=== PATIENT | male | born 1970 | race Caucasian/White ===

== ENCOUNTER 2022-10-29 20:34 | Emergency (ER) | payer OTHER, SELFPAY ==
[2022-10-29 20:36] VITALS: BP 156/98; RESP 26; TEMP 36.3; O2SAT 98; BMI 27.0
[2022-10-29 20:39] VITALS: BP 155/101; PULSE 98; RESP 24; O2SAT 99
--- NOTE | 2022-10-29 20:41 | ED.GENADULT ---
HPI - General Adult General Chief complaint: Chest Pain Stated complaint: heartburn Time Seen by Provider: 10/29/22 20:35 History of Present Illness HPI narrative: Pt states his abdomen is burning it was right after 6pm after his dinner, that his stomach started to burn , he states his jaw and triceps hurt as well. He is having back pain. 51-year-old man presenting to the emergency department with complaint of burning epigastric pain about 2-1/2 hours prior to arrival here. This was shortly after supper. Does not really struggle with heartburn apparently. Subsequently then his jaw started to hurt then triceps and now his elbows. Arrives a little tachypneic but does not describes of shortness of breath. Does have some anxiety and pain is causing him to feel some stress. Starting a new job shortly. Does have hypertension and dyslipidemia but not taking his Lipitor regularly. Spouse is a consultant intern. She notes his propensity toward carnivorous lifestyle. Related Data Allergies Allergy/AdvReac Type Severity Reaction Status Date / Time No Known Drug Allergies Allergy Verified 10/29/22 20:39 Review of Systems Status of ROS: Reports: 6 or more systems reviewed and unremarkable except as noted in History and below Exam Narrative: Exam Narrative: Ambulatory to the ER. Clearly uncomfortable. Wincing. Conversing without difficulty. Cranial nerves grossly intact. Slightly labored in his breathing consistent with apparent pain, oxygenating well. Skin is actually warm and dry. Well-perfused peripherally. Heart is in a mildly elevated rate. Regular rhythm. Lungs appear to be clear. Const: Vital Signs, click to edit/add: Vital Signs - 24 hr 10/29/22 20:36 Temperature 97.3 F L Respiratory Rate 26 H Blood Pressure [Ri ght Upper Arm] 156/98 H Pulse Oximetry 98 Oxygen Delivery Me thod Room Air Documenting provider has reviewed patient's vital signs: yes Course Vital Signs Vital signs: Initial Vital Signs Temperature 97.3 F L 10/29/22 20:36 Temperature Source Temporal Artery Scan 10/29/22 20:36 Pulse Rhythm Regular 10/29/22 20:36 Pulse Strength 3+ Normal 10/29/22 20:36 Respiratory Rate 26 H 10/29/22 20:36 Blood Pressure 156/98 H 10/29/22 20:36 Blood Pressure Mean 117 H 10/29/22 20:36 Blood Pressure Position Sitting 10/29/22 20:36 Pulse Oximetry 98 10/29/22 20:36 Oxygen Delivery Method Room Air 10/29/22 20:36 Vital Signs Temperature 97.3 F L 10/29/22 20:36 Respiratory Rate 26 H 10/29/22 20:36 Blood Pressure 156/98 H 10/29/22 20:36 Pulse Oximetry 98 10/29/22 20:36 Oxygen Delivery Method Room Air 10/29/22 20:36 Temperature 97.3 F L 10/29/22 20:47 Pulse Rate 80 10/29/22 21:30 Respiratory Rate 20 10/29/22 21:30 Blood Pressure 140/88 H 10/29/22 21:30 Pulse Oximetry 99 10/29/22 21:30 Oxygen Delivery Method Room Air 10/29/22 21:30 Medical Decision Making MDM Narrative Medical decision making narrative: I am handed EKG as I walk into the exam room. This shows diffuse areas of marked ST elevation. Rate of 70. Presumed extensive WA. will be treating as STEMI. Quickly examined and exit to initiate level 1 protocol calling to [facility]. Spoke with Dr. Bahena. Helicopter unfortunately is a ways out; farther than usual. I think it will at least be equivalent via ground. I do know how long it will take our ambulance and we have activated them code 3 for transport. Ordered for morphine and Q 5 nitro. However after 2 nitro pain went from his 9 or so rating to 1 and as I am talking with him again is essentially non-existent. Clearly less anxious. color television console monitor still showing marked elevation. Have not initiated nitro drip at this time. Receiving normal saline bolus as well. Labs are pending. By my read chest x-ray with normal airspace. Normal mediastinum. Pending transport. Initial point of care troponin is 0.27. White count a little elevated might be margination/stress response. Creatinine of 1.4 Vitals stable. Lab Data Lab results reviewed: Yes I reviewed the patient's lab results Labs: Lab Results 10/29/22 10/29/22 Range/Units 20:48 20:50 WBC 13.88 H (4.50-11.00) K/uL RBC 5.37 (4.30-5.90) m/uL Hgb 16.0 (13.5-17.5) gm/dL Hct 44.7 (37.0-53.0) % MCV 83 (80-100) fL MCH 30 (26-34) pg MCHC 36 (32-36) gm/dL RDW Coeff of Edis 12.2 (11.5-15.5) % Plt Count 246 (140-440) K/uL Neut % (Auto) 78.1 H (42.0-72.0) % Lymph % (Auto) 14.1 L (20-44) % [place] % (Auto) 6.9 (0.0-11.0) % Eos % (Auto) 0.6 (0.0-7.0) % Baso % (Auto) 0.2 (0.0-3.0) % Neut # (Auto) 10.80 H (1.7-7.0) K/uL Lymph # (Auto) 2.00 (0.90-2.90) K/uL [place] # (Auto) 1.00 H (0.00-0.90) K/UL Eos # (Auto) 0.10 (0.00-0.50) K/uL Baso # (Auto) 0.00 (0.00-0.30) K/uL Abs Immat Gran (auto) 0.00 (0.00-0.30) K/uL Imm/Tot Granulo (auto) 0.1 % D-Dimer Quant (PE/DVT) 0.31 (0.00-0.50) ug/ml Sodium 137 (135-149) mmol/L Potassium 3.4 L (3.6-5.1) mmol/L Chloride 101 (96-114) mmol/L Carbon Dioxide 21 (20-32) mmol/L BUN 30 (7-30) mg/dL Creatinine 1.4 (0.5-1.5) mg/dL Estimated Creat Clear 70.55 Estimated GFR 61 ml/min Glucose 225 H (60-115) mg/dL Calcium 10.0 (8.4-10.6) mg/dL Total Bilirubin 0.5 (0.1-1.5) mg/dL Direct Bilirubin 0.1 (0.0-0.5) mg/dL AST 41 H (12-35) U/L ALT 47 (4-50) U/L Alkaline Phosphatase 76 (40-150) U/L Troponin I 0.24 H* (0.01-0.04) ng/mL NT-Pro-B Natriuret Pep < 20 pg/mL Total Protein 8.0 (6.0-8.3) g/dL Albumin 4.8 (3.3-5.0) g/dL POC Troponin I 0.27 H (0.01-0.04) ng/ml ECG Data Attestation: I personally reviewed and interpreted this ECG as follows: (Diffuse ST elevation [place]. rate of 70) Critical Care Time Critical Care Time Total Critical Care Time in Minutes: 40 Discharge Plan Discharge Clinical Impression: ST elevation (STEMI) myocardial infarction Patient Disposition: Xfer [facility] Discharge Location: [facility] Condition: Critical Stand Alone Forms: MyHealth Info Instructions
[2022-10-29 20:47] VITALS: BP 117/82; BP 153/85; PULSE 84; PULSE 98; RESP 20; TEMP 36.3; O2SAT 99
--- NOTE | 2022-10-29 20:47 | CRLHL7_ITS ---
For Patients: As a result of the Century Cures Act, medical imaging exams and procedure reports are released immediately into your electronic medical record. You may view this report before your referring provider. If you have questions, please contact your health care provider. INDICATION: Chest pain, epigastric pain TECHNIQUE: Chest 1 view. Permanently recorded images are archived. COMPARISON: None. FINDINGS: Cardiovascular and mediastinum: Heart size and vasculature are normal in caliber and appearance. Lungs and pleural spaces: The lungs are clear. No pleural effusion or pneumothorax. Bones and soft tissues: Unremarkable for age. IMPRESSION: No evidence of an acute pulmonary process. Dictated by Sidney Cavazos MD @ 10/29/2022 9:23:26 PM (Electronically Signed)
[2022-10-29] MEDS: NITROGLYCERIN 0.4 MG TAB.SUBL SUBLINGUAL ×2 (20:54→21:00)
[2022-10-29 20:55] VITALS: BP 144/92; PULSE 84; RESP 20; O2SAT 99
[2022-10-29] MEDS: ASPIRIN 81 MG TAB.CHEW 324 MG PO (20:55)
[2022-10-29] MEDS: HEPARIN 5,000 UNIT/0.5 ML INJ 4000 UNIT IVP (20:58)
[2022-10-29] MEDS: TICAGRELOR 90 MG TABLET 180 MG PO ×2 (21:00→21:07)
[2022-10-29 21:02] LABS: Basophils Percent Auto 0.2 % (0.0-3.0); Eosinophils Percent Auto 0.6 % (0.0-7.0); Hematocrit 44.7 % (37.0-53.0); Immature Granulocytes Pct Auto 0.1 %; Lymphocytes Percent Auto 14.1 % (20-44); Mean Corpuscular HGB Conc 36 gm/dL (32-36); Mean Corpuscular Hemoglobin 30 pg (26-34); Mean Corpuscular Volume 83 fL (80-100); Monocytes Percent Auto 6.9 % (0.0-11.0); Neutrophils Percent Auto 78.1 % (42.0-72.0); Platelet Count* 246 K/uL (140-440); RDW Coefficient of Variation % 12.2 % (11.5-15.5); Red Blood Count 5.37 m/uL (4.30-5.90); White Blood Count* 13.88 K/uL (4.50-11.00)
[2022-10-29 21:09] LABS: Slide Review Reflex No
[2022-10-29 21:12] LABS: Troponin, Point-of-Care* 0.27 ng/ml (0.01-0.04)
[2022-10-29] MEDS: HEPARIN 25,000 UNIT/500 ML BAG 20 UNIT IV (21:14)
[2022-10-29 21:15] LABS: Chloride* 101 mmol/L (96-114)
[2022-10-29 21:16] LABS: Albumin* 4.8 g/dL (3.3-5.0); Potassium* 3.4 mmol/L (3.6-5.1); Sodium* 137 mmol/L (135-149)
[2022-10-29] MEDS: 0.9 % SODIUM CHLORIDE 1000 ml 1,000 ML IV (21:16)
[2022-10-29 21:18] LABS: Carbon Dioxide* 21 mmol/L (20-32); Creatinine* 1.4 mg/dL (0.5-1.5); Est. Creatinine Clearance* 70.55; Estimated Glomerular Filt Rate 61 ml/min
[2022-10-29 21:19] LABS: Alanine Aminotransferase* 47 U/L (4-50); Alkaline Phosphatase* 76 U/L (40-150); Aspartate Amino Transferase* 41 U/L (12-35); Bilirubin Direct* 0.1 mg/dL (0.0-0.5); Bilirubin Total* 0.5 mg/dL (0.1-1.5); Blood Urea Nitrogen* 30 mg/dL (7-30); Glucose* 225 mg/dL (60-115)
[2022-10-29 21:21] LABS: D Dimer Quantitative* 0.31 ug/ml (0.00-0.50)
[2022-10-29 21:29] VITALS: BP 147/93; PULSE 81; RESP 20; O2SAT 99
[2022-10-29 21:30] VITALS: BP 140/88; PULSE 80; RESP 20; O2SAT 99
[2022-10-29 21:32] LABS: NT Pro B Type NatriureticPept* < 20 pg/mL; Troponin I* 0.24 ng/mL (0.01-0.04)
--- NOTE | 2022-10-29 21:32 | ED.NURSE ---
Pt was transferred by [facility] transport to [place] for dx: STEMI. 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
== END 2022-10-29 21:25 | disposition short-term general hospital (02) ==
PROVIDERS: Emergency Provider Family Medicine; PCP Family Medicine
DX: I21.3 ST elevation (STEMI) myocardial infarction of unspecified site (principal)
CPT/HCPCS: 36415; 71045; 80048; 80076; 83880; 84484; 85025; 85379; 93005; 94761; 99284; 99291; A9270; J1644; J7030

== ENCOUNTER 2022-10-29 21:16 | Outpatient (CLI) | payer OTHER, SELFPAY | END 2022-10-29 21:17 | disposition home or self-care (01) | LOC: AMB 11-02 11:38 | PROVIDERS: PCP Family Medicine; Visit Provider Family Medicine | DX: I21.3 ST elevation (STEMI) myocardial infarction of unspecified site (principal) | CPT/HCPCS: A0425; A0434 ==

== ENCOUNTER 2022-11-16 14:50 | Outpatient (CLI) | payer OTHER, SELFPAY | END 2022-11-16 14:51 | disposition home or self-care (01) | PROVIDERS: PCP Family Medicine; Visit Provider Emergency Medicine | DX: I10 Essential (primary) hypertension (principal); E78.5 Hyperlipidemia, unspecified; R74.01 Elevation of levels of liver transaminase levels; Z13.1 Encounter for screening for diabetes mellitus; Z12.5 Encounter for screening for malignant neoplasm of prostate; Z95.5 Presence of coronary angioplasty implant and graft | CPT/HCPCS: 80048; 80076; 84153 ==